=== PATIENT | female | born 1940 | race Caucasian/White ===

== ENCOUNTER 2017-12-01 07:30 | Inpatient (IN) | payer MEDICARE ==
[~2017-12-01] VITALS: Ht 167.6 cm; Wt 70.8 kg
[2017-12-17] MEDS ORDERED: PANT40TA4 PO (11:13)
[2017-12-17] MEDS ORDERED: POTA10TA19 PO (11:13)
[2017-12-17] MEDS ORDERED: GABA-530 PO (11:13)
[2017-12-17] MEDS ORDERED: ALEN70TA13 PO (11:13)
[2017-12-17 11:47] LABS: CLARITY,URINE SLIGHTLY CLOUDY (Clear); COLOR,URINE YELLOW (Yellow); GLUCOSE, URINE NEGATIVE (Neg); KETONES,URINE NEGATIVE (Neg); LEUKOCYTE ESTERASE ,URINE SMALL (Neg); NITRITES, URINE NEGATIVE (Neg); OCCULT BLOOD,URINE NEGATIVE (Neg); PROTEIN,URINE NEGATIVE (Neg); UROBILINOGEN,URINE 0.2 E.U/dL (0.2-1.0)
[2017-12-17 11:56] LABS: MEAN CORPUSCULAR HEMOGLOBIN 28.7 PG (27.0-31.0); MEAN CORPUSCULAR HGB CONC 33.6 % (33.0-36.5); MEAN CORPUSCULAR VOLUME 85.4 FL (78-98); PRE OP HEMATOCRIT 43.3 % (35.0-45.0); PRE OP HEMOGLOBIN 14.6 g/dL (12.0-16.0); PRE OP PROTIME 10.8 SECONDS (9.0-12.0); RED BLOOD COUNT 5.07 X10'6 (4.20-5.60); RED CELL DISTRIBUTION WIDTH 12.9 % (11.5-14.5)
[2017-12-17 11:57] LABS: BASOPHILS # (AUTO) 0.1 X10'3 (0-0.2); BASOPHILS % (AUTO) 0.8 % (0-1); EOSINOPHILS # (AUTO) 0.2 X10'3 (0-0.9); EOSINOPHILS % (AUTO) 2.3 % (0-6); LYMPHOCYTES # (AUTO) 1.6 X10'3 (1.1-4.8); LYMPHOCYTES % (AUTO) 23.3 % (21-51); MEAN PLATELET VOLUME 8.8 FL (7.4-10.4); MONOCYTES # (AUTO) 0.5 X10'3 (0-0.9); NEUTROPHILS # (AUTO) 4.5 X10'3 (1.8-7.7); NEUTROPHILS % (AUTO) 66.6 % (42-75); PRE OP PLATELET COUNT 195 X10'3 (140-440)
[2017-12-17 11:59] LABS: UA COLLECTION TYPE CLN CATCH MIDSTREAM
[2017-12-17 12:02] LABS: ALBUMIN 3.7 G/DL (3.4-5.0); ALKALINE PHOSPHATASE 74 IU/L (46-116); BLOOD UREA NITROGEN 12 MG/DL (7-18); BUN/CREATININE RATIO 14.3 (6.6-38.0); CHLORIDE 103 MMOL/L (99-107); CREATININE 0.84 MG/DL (0.40-0.90); PRE OP ALT 31 U/L (30-65); PRE OP ANION GAP 6 (8-16); PRE OP AST 24 U/L (10-37); PRE OP BILIRUB, TOTAL 0.5 MG/DL (0.0-1.0); PRE OP GLUCOSE 117 MG/DL (70-104); PRE OP POTASSIUM 4.4 MMOL/L (3.4-5.1); PRE OP SODIUM 141 MMOL/L (135-145); TOTAL CARBON DIOXIDE 32.2 MMOL/L (24-32); TOTAL PROTEIN 7.3 G/DL (6.4-8.2); eGFR 66 ML/MIN
[2017-12-17 12:04] LABS: RBC,URINE NONE SEEN /HPF (0-2)
[2017-12-17 12:05] LABS: BACTERIA,URINE FEW /HPF (Neg); SQUAMOUS EPITHELIAL CELL,UR FEW /LPF (FEW)
[2017-12-22] VITALS (19 sets, daily range): BP systolic 103–126; BP diastolic 43–79
[2017-12-22] MEDS ORDERED: ringers solution, lacted 1,000 ML IV SCH ×2 (05:00→08:37)
[2017-12-22] MEDS ORDERED: gabapentin 300mg capsule PO ONE (05:30)
[2017-12-22] MEDS ORDERED: celeCOXIB 100mg capsule PO ONE (05:30)
[2017-12-22] MEDS ORDERED: acetaminophen 325mg tablet PO ONE (05:30)
[2017-12-22] MEDS ORDERED: famotidine 20mg tablet PO ONE (05:30)
[2017-12-22] MEDS ORDERED: cefazolin/dext.iso 2gm/100 ML IV ONE (05:30)
[2017-12-22] MEDS ORDERED: tranexamic acid inj. 1,500 MG in normal saline 100ml IV soln 85 ML IV ONE (05:30)
[2017-12-22] MEDS ORDERED: LIDOcaine 1% (10mg/ml) 2ml vial ONE (05:43)
[2017-12-22] MEDS ORDERED: ROPIVAcaine 0.5% (5mg/ml) 30ml vial ONE ×2 (06:45→07:33)
[2017-12-22] MEDS ORDERED: bacitracin inj 150,000 UNIT in sodium chloride irrig. sol 3,000 ML IR ONE ×2 (06:55→07:00)
[2017-12-22] MEDS ORDERED: tetracaine 1% (10mg/ml) pres. free inj. ONE (07:11)
[2017-12-22] MEDS ORDERED: cloNIDine hcl/PF 100mcg/ml inj ONE (07:11)
[2017-12-22] MEDS ORDERED: morphine /PF 1mg/ml 10ml inj. ONE (07:13)
[2017-12-22] MEDS ORDERED: MIDAZolam 5mg/5ml vial ONE (07:14)
[2017-12-22] MEDS ORDERED: dexamethasone sod phosphate 10mg/ml inj ONE (07:16)
[2017-12-22] MEDS ORDERED: diphenhydrAMINE 50 mg/ml inj ONE (07:37)
[2017-12-22] MEDS ORDERED: propofol inj 20 ML IV ONE (07:42)
[2017-12-22] MEDS ORDERED: LIDOcaine 1%/PF 5ML 10 MG/ML VIAL ONE (07:42)
[2017-12-22] MEDS ORDERED: naloxone 2mg/2ml inj 1.4 MG in normal saline 500ml IV soln 500 ML IV PRN (08:37)
[2017-12-22] MEDS ORDERED: HYDROmorphone inj. 0.5 MG/0.5 ML DISP.SYRIN IV PRN (08:40)
[2017-12-22] MEDS ORDERED: ondansetron/PF 4mg/2ml inj IV PRN ×2 (08:40)
[2017-12-22] MEDS ORDERED: diphenhydrAMINE 50 mg/ml inj IV PRN (08:40)
[2017-12-22] MEDS ORDERED: morphine 4 MG/ML inj SYRINge IV PRN (08:40)
[2017-12-22] MEDS ORDERED: ceFAZolin 1000mg inj ONE (08:49)
[2017-12-22] MEDS ORDERED: diphenhydrAMINE 25mg capsule PO PRN ×2 (09:35)
[2017-12-22] MEDS ORDERED: HYDROmorphone 1 mg/ml syringe IV PRN (09:35)
[2017-12-22] MEDS ORDERED: acetaminophen 325mg tablet PO PRN (09:35)
[2017-12-22] MEDS ORDERED: bisacodyl 10mg suppository rectal RC PRN (09:35)
[2017-12-22] MEDS ORDERED: magnesium hydroxide 30ml (MOM) UD suspension PO PRN (09:35)
[2017-12-22] MEDS: ondansetron/PF 4mg/2ml inj IV PRN (13:11)
[2017-12-22] MEDS: gabapentin 300mg capsule PO SCH ×2 (13:11→20:07)
[2017-12-22] MEDS: potassium cl 20mEq in 1/2 NS 1,000 ML IV SCH ×2 (13:15→20:11)
[2017-12-22] MEDS: ceFAZolin 1GM/D5W- ADD-VANTAGE 50 ML IV SCH ×2 (16:37→23:48)
[2017-12-22] MEDS: sennosides 8.6mg tablet PO SCH (20:08)
[2017-12-22] MEDS: ascorbic acid 500mg tablet PO SCH (20:08)
[2017-12-22] MEDS: HYDROcodone/acetaminophen 10/325mg tab PO PRN (20:11)
[2017-12-23 02:00] VITALS: BP 94/42
[2017-12-23 05:00] VITALS: BP 109/53
[2017-12-23] MEDS: HYDROcodone/acetaminophen 10/325mg tab PO PRN ×4 (05:25→19:56)
[2017-12-23] MEDS: potassium cl 20mEq in 1/2 NS 1,000 ML IV SCH (05:26)
[2017-12-23 06:01] LABS: BASOPHILS % (AUTO) 0.3 % (0-1); EOSINOPHILS # (AUTO) 0.1 X10'3 (0-0.9); EOSINOPHILS % (AUTO) 1.1 % (0-6); HEMATOCRIT 38.2 % (35.0-45.0); HEMOGLOBIN 13.6 g/dl (12.0-16.0); LYMPHOCYTES # (AUTO) 1.6 X10'3 (1.1-4.8); LYMPHOCYTES % (AUTO) 20.6 % (21-51); MEAN CORPUSCULAR HEMOGLOBIN 30.4 PG (27.0-31.0); MEAN CORPUSCULAR HGB CONC 35.6 % (33.0-36.5); MEAN CORPUSCULAR VOLUME 85.3 FL (78-98); MEAN PLATELET VOLUME 8.7 FL (7.4-10.4); MONOCYTES # (AUTO) 0.6 X10'3 (0-0.9); MONOCYTES % (AUTO) 8.1 % (2-12); NEUTROPHILS # (AUTO) 5.3 X10'3 (1.8-7.7); NEUTROPHILS % (AUTO) 69.9 % (42-75); PLATELET COUNT 175 X10'3 (140-440); RED BLOOD COUNT 4.47 X10'6 (4.20-5.60); RED CELL DISTRIBUTION WIDTH 12.9 % (11.5-14.5); WHITE BLOOD COUNT 7.6 X10'3 (4.5-11.0)
[2017-12-23 06:12] LABS: INR 1.4 INR
[2017-12-23 06:16] LABS: ANION GAP 9 (8-16); CHLORIDE 105 MMOL/L (99-107); POTASSIUM 4.5 MMOL/L (3.5-5.1); SODIUM 142 MMOL/L (135-145); TOTAL CARBON DIOXIDE 28.4 MMOL/L (24-32)
[2017-12-23] MEDS: pantoprazole 40mg Tablet.DR PO SCH (07:58)
[2017-12-23] MEDS: ascorbic acid 500mg tablet PO SCH ×2 (07:58→19:56)
[2017-12-23] MEDS: gabapentin 300mg capsule PO SCH ×3 (07:58→19:56)
[2017-12-23] MEDS: potassium chloride 10mEq ER tablet PO SCH (07:58)
[2017-12-23] MEDS: multivitamins, therapeutics tablet PO SCH (07:59)
[2017-12-23] MEDS: benzocaine/menthol oral lozeng 1 EACH BOX MM PRN ×3 (09:00→14:14)
[2017-12-23 10:00] VITALS: BP 111/46
[2017-12-23] MEDS ORDERED: warfarin 5mg tablet PO ONE (10:00)
[2017-12-23 14:00] VITALS: BP 100/48
[2017-12-23 18:00] VITALS: BP 110/49
[2017-12-23] MEDS: sennosides 8.6mg tablet PO SCH (19:56)
[2017-12-23] MEDS ORDERED: calcium carbonate 500mg chew tablet PO PRN (21:35)
[2017-12-23] MEDS ORDERED: magnesium hydroxide 30ml (MOM) UD suspension PO ONE (21:35)
[2017-12-23] MEDS ORDERED: LORazepam 0.5 MG tablet PO PRN (21:35)
[2017-12-24] MEDS: potassium cl 20mEq in 1/2 NS 1,000 ML IV SCH ×3 (00:46→04:23)
[2017-12-24] MEDS: HYDROcodone/acetaminophen 10/325mg tab PO PRN ×5 (05:19→22:04)
[2017-12-24 06:28] LABS: INR 1.6 INR; PROTHROMBIN TIME 16.3 SECONDS (9.0-12.0)
[2017-12-24 06:35] LABS: BASOPHILS % (AUTO) 0.7 % (0-1); EOSINOPHILS # (AUTO) 0.3 X10'3 (0-0.9); EOSINOPHILS % (AUTO) 5.2 % (0-6); HEMATOCRIT 38.3 % (35.0-45.0); HEMOGLOBIN 13.5 g/dl (12.0-16.0); LYMPHOCYTES % (AUTO) 29.7 % (21-51); MEAN CORPUSCULAR HEMOGLOBIN 29.9 PG (27.0-31.0); MEAN CORPUSCULAR HGB CONC 35.2 % (33.0-36.5); MEAN CORPUSCULAR VOLUME 84.9 FL (78-98); MEAN PLATELET VOLUME 9.1 FL (7.4-10.4); MONOCYTES # (AUTO) 0.7 X10'3 (0-0.9); NEUTROPHILS # (AUTO) 3.7 X10'3 (1.8-7.7); NEUTROPHILS % (AUTO) 54.4 % (42-75); PLATELET COUNT 185 X10'3 (140-440); RED BLOOD COUNT 4.51 X10'6 (4.20-5.60); RED CELL DISTRIBUTION WIDTH 13.5 % (11.5-14.5); WHITE BLOOD COUNT 6.7 X10'3 (4.5-11.0)
[2017-12-24 06:56] VITALS: BP 137/56
[2017-12-24] MEDS: multivitamins, therapeutics tablet PO SCH (07:17)
[2017-12-24] MEDS: pantoprazole 40mg Tablet.DR PO SCH (07:17)
[2017-12-24] MEDS: gabapentin 300mg capsule PO SCH ×3 (07:18→21:08)
[2017-12-24] MEDS: ascorbic acid 500mg tablet PO SCH ×2 (07:18→21:08)
[2017-12-24] MEDS: potassium chloride 10mEq ER tablet PO SCH (07:18)
[2017-12-24] MEDS ORDERED: acetaminophen 325mg tablet PO PRN (09:35)
[2017-12-24] MEDS: ondansetron/PF 4mg/2ml inj IV PRN ×2 (09:56→23:50)
[2017-12-24] MEDS ORDERED: warfarin 3mg tablet PO ONE (10:00)
[2017-12-24 11:20] VITALS: BP 114/45
[2017-12-24 18:00] VITALS: BP 118/50
[2017-12-24] MEDS: sennosides 8.6mg tablet PO SCH (21:08)
[2017-12-24 22:00] VITALS: BP 126/58
[2017-12-25] MEDS: ondansetron/PF 4mg/2ml inj IV PRN (00:05)
[2017-12-25] MEDS: HYDROcodone/acetaminophen 10/325mg tab PO PRN ×2 (05:07→09:18)
[2017-12-25 05:50] LABS: BASOPHILS # (AUTO) 0.1 X10'3 (0-0.2); BASOPHILS % (AUTO) 0.9 % (0-1); EOSINOPHILS # (AUTO) 0.3 X10'3 (0-0.9); HEMATOCRIT 36.8 % (35.0-45.0); LYMPHOCYTES # (AUTO) 1.5 X10'3 (1.1-4.8); LYMPHOCYTES % (AUTO) 21.1 % (21-51); MEAN CORPUSCULAR HGB CONC 35.2 % (33.0-36.5); MEAN CORPUSCULAR VOLUME 85.4 FL (78-98); MEAN PLATELET VOLUME 8.6 FL (7.4-10.4); MONOCYTES # (AUTO) 0.7 X10'3 (0-0.9); MONOCYTES % (AUTO) 9.3 % (2-12); NEUTROPHILS # (AUTO) 4.6 X10'3 (1.8-7.7); NEUTROPHILS % (AUTO) 64.7 % (42-75); PLATELET COUNT 192 X10'3 (140-440); RED BLOOD COUNT 4.31 X10'6 (4.20-5.60); RED CELL DISTRIBUTION WIDTH 13.2 % (11.5-14.5); WHITE BLOOD COUNT 7.2 X10'3 (4.5-11.0)
[2017-12-25 06:00] VITALS: BP 132/62
[2017-12-25 06:52] LABS: INR 1.6 INR
[2017-12-25] MEDS: ascorbic acid 500mg tablet PO SCH (07:29)
[2017-12-25] MEDS: pantoprazole 40mg Tablet.DR PO SCH (07:29)
[2017-12-25] MEDS: multivitamins, therapeutics tablet PO SCH (07:29)
[2017-12-25] MEDS: gabapentin 300mg capsule PO SCH ×2 (07:29→13:00)
[2017-12-25] MEDS: benzocaine/menthol oral lozeng 1 EACH BOX MM PRN (07:30)
[2017-12-25] MEDS: potassium chloride 10mEq ER tablet PO SCH (07:30)
[2017-12-25] MEDS ORDERED: warfarin 1mg tablet PO ONE (09:00)
[2017-12-25 10:00] VITALS: BP 118/50
== END 2017-12-25 13:10 | DRG 470 ==
LOC: EDSTATUS 07:30 → PAS IN 12-22 05:15 → EDSTATUS 12-22 07:30 → ORTHO 4S 12-22 10:59
PROVIDERS: ADMIT Specialist; ATTEND Specialist
PROC: 3E0T3BZ Introduction of Anesthetic Agent into Peripheral Nerves and Plexi, Percutaneous Approach (ICD-10-PCS; 2017-12-22)
PROC: 0SRD0J9 Replacement of Left Knee Joint with Synthetic Substitute, Cemented, Open Approach (ICD-10-PCS; principal; 2017-12-22 07:16)
DX: M17.12 Unilateral primary osteoarthritis, left knee (principal); K21.9 Gastro-esophageal reflux disease without esophagitis; R73.03 Prediabetes; G89.29 Other chronic pain; M21.062 Valgus deformity, not elsewhere classified, left knee; I44.7 Left bundle-branch block, unspecified; Z79.899 Other long term (current) drug therapy; Z88.1 Allergy status to other antibiotic agents; Z88.5 Allergy status to narcotic agent; Z88.8 Allergy status to other drugs, medicaments and biological substances; Z91.048 Other nonmedicinal substance allergy status; Z87.891 Personal history of nicotine dependence; Z85.3 Personal history of malignant neoplasm of breast
CPT/HCPCS: 36415; 73560; 80051; 80053; 81001; 82948; 83036; 85025; 85610; 85730; 87070; 87088; 93005; 97110; 97116; 97162; 97530; A6449; A6455; A7000; C1713; C1758; C1776; J0690; J0735; J1100; J1200; J2001; J2250; J2274; J2405; J2704; J2795; J3490; J7030; J7120